=== PATIENT | male | born 1960 | race Caucasian/White ===

== ENCOUNTER 2022-09-07 12:50 | Emergency (ER) | payer MEDICARE, SELFPAY ==
[2022-09-07 13:04] VITALS: BP 125/75; PULSE 67; RESP 18; TEMP 36.7; O2SAT 98; BMI 21.1
--- NOTE | 2022-09-07 13:37 | CRLHL7_ITS ---
For Patients: As a result of the 21st Century Cures Act, medical imaging exams and procedure reports are released immediately into your electronic medical record. You may view this report before your referring provider. If you have questions, please contact your health care provider. INDICATION: Left lower quadrant abdominal pain COMPARISON: None TECHNIQUE: CT examination of the abdomen and pelvis was performed following the uneventful intravenous administration of 79 cc of Isovue 370. Thin section axial images were obtained from the lung bases through the pubic symphysis. Oral contrast was not administered. Please note that all CT scans at this facility use dose modulation, iterative reconstruction, and/or weight-based dosing when appropriate to reduce radiation dose to as low as reasonably achievable. FINDINGS: LUNG BASES: There is a 4 millimeter nodule at the right lung base. Follow up evaluation as per Fleischner society guidelines.The heart size is normal at the lung bases. Small hiatal hernia. LIVER/BILIARY SYSTEM:A few scattered tiny low-density hepatic lesions are noted. These are too small to characterize by imaging but are likely benign. Contracted but otherwise unremarkable appearing gallbladder.The gall bladder appears normal. ADRENALS: Normal KIDNEYS, URETERS and BLADDER:The kidneys appear normal. The bladder is distended. SPLEEN:Normal appearance. PANCREAS: Poorly delineated due to paucity of fat planes but no gross abnormality RETROPERITONEUM and MESENTERY: Atherosclerotic vascular calcification GASTROINTESTINAL SYSTEM: Limitations due to marked paucity of fat planes. No definite mechanical obstruction. Mild fecal retention. PELVIS: No mass, adenopathy or free fluid. OSSEOUS STRUCTURES and ABDOMINAL WALL: There is an age-appropriate appearance of the osseous structures.There is a small left inguinal hernia. This does not admit bowel. OTHER: No free fluid or free air. IMPRESSION: 1. There is a 4 millimeter nodule at the right lung base. Follow-up as per Fleischner guidelines. (No follow-up for low risk individuals, consider 12 month follow-up evaluation for high-risk individuals) 2. Scattered low-density hepatic lesions too small to characterize but likely benign 3. Atherosclerotic vascular calcifications 4. There are some limitations due to paucity of fat planes but no additional abdominal or pelvic abnormalities are noted. 5. Small left inguinal hernia. This does not admit bowel. Please note that all CT scans at this facility use dose modulation, iterative reconstruction, and/or weight-based dosing when appropriate to reduce radiation dose to as low as reasonably achievable. Dictated by Roel Ram MD @ 09/07/2022 3:54:41 PM (Electronically Signed)
--- NOTE | 2022-09-07 13:38 | ED.ABDPAIN ---
HPI - Abdominal Pain General Chief Complaint: Abdominal Pain Stated Complaint: Suspected hernia mesh failure Time Seen by Provider: 09/07/22 13:08 History of Present Illness HPI narrative: This 62-year-old male comes in reporting pain in his left lower quadrant. He states that he had a hernia repair done with mesh about a year ago and did well until about 4 months ago when he began to have pain in this area. He felt like something moved and wondered if there was a failure of the hernia repair. He did have a CT scan at his home in [place] about 2 months ago. He also had a colonoscopy which was normal except for a couple benign polyps in the rectum area. He comes in today stating that the pain in his abdomen is worse. He is not taking any medications. He states that he is otherwise in good health. He denies having any vomiting or diarrhea. He has not had any fevers. Related Data Home Medications Medication Instructions Recorded Confirmed acyclovir 200 mg capsule 200 mg PO 5XD 09/07/22 09/07/22 azithromycin 250 mg tablet 250 mg PO DAILY 09/07/22 09/07/22 chlorhexidine gluconate 0.12 % PO BID 09/07/22 mouthwash levothyroxine .ROUTE 09/07/22 prednisone 20 mg tablet 20 mg PO BID 09/07/22 09/07/22 Previous Rx's Medication Instructions Recorded ketorolac 10 mg tablet 10 mg PO Q8H 7 days #21 tabs 09/07/22 Allergies Allergy/AdvReac Type Severity Reaction Status Date / Time No Known Drug Allergies Allergy Verified 09/07/22 14:34 Review of Systems Status of ROS Reports: 10 or more systems reviewed and unremarkable except as noted in History and below Narrative Constitutional: No fevers, no weight gain or loss. Eyes: No discharge. No vision changes. HENT: No congestion, no sore throat, no ear pain. Cardiovascular: No chest pain, no palpitations. Respiratory: No shortness of breath, no wheezes, no cough. Gastrointestinal: No vomiting, no diarrhea. Pain over the left inguinal region where a hernia repair occurred about a year ago. Genitourinary: No dysuria, no hematuria. Musculoskeletal: Normal range of motion. Skin: No rashes, no pruritis. Neurological: No dizziness, weakness, sensory change, speech change. Endo/Heme/Allergies: No bruising or bleeding. No polydipsia. Pysch: no suicidality, no anxiety, no insomnia. All other systems reviewed and are negative. Exam Narrative: Exam Narrative: Constitutional: Well-developed, well-nourished, no acute distress. HEENT: Normocephalic, atraumatic. Neck: Normal range of motion. Nontender. Supple. Heart: Regular. No murmurs. Normal rate. Intact distal pulses. Lungs: Clear to auscultation. No chest discomfort. No wheezes, rhonchi, or rales. Abdomen: Normal bowel sounds. Tenderness over the left inguinal region. No bulging or sign of hernia. No rebound tenderness. Genitalia: Deferred. Back: No midline tenderness. Normal range of motion. Extremities: Normal range of motion. No injury. Skin: Intact. No rash. Warm. No erythema or pallor. Neurologic: No altered sensation. No weakness. Alert and oriented. Psychiatric: No suicidality. No anxiety or depression. No insomnia. Nursing notes and vitals signs are reviewed. Const: Vital Signs, click to edit/add: Vital Signs - 24 hr 09/07/22 13:04 Temperature 98.1 F Pulse Rate [Right Pulse Oximeter] 67 Respiratory Rate 18 Blood Pressure [Ri ght Upper Arm] 125/75 Pulse Oximetry 98 Oxygen Delivery Me thod Room Air Course Vital Signs Vital signs: Initial Vital Signs Temperature 98.1 F 09/07/22 13:04 Temperature Source Temporal Artery Scan 09/07/22 13:04 Pulse Rate 67 09/07/22 13:04 Respiratory Rate 18 09/07/22 13:04 Blood Pressure 125/75 09/07/22 13:04 Blood Pressure Mean 91 09/07/22 13:04 Blood Pressure Position Sitting 09/07/22 13:04 Pulse Oximetry 98 09/07/22 13:04 Oxygen Delivery Method Room Air 09/07/22 13:04 Vital Signs Temperature 98.1 F 09/07/22 13:04 Pulse Rate 67 09/07/22 13:04 Respiratory Rate 18 09/07/22 13:04 Blood Pressure 125/75 09/07/22 13:04 Pulse Oximetry 98 09/07/22 13:04 Oxygen Delivery Method Room Air 09/07/22 13:04 Temperature 98.1 F 09/07/22 13:04 Pulse Rate 67 09/07/22 13:04 Respiratory Rate 18 09/07/22 13:04 Blood Pressure 125/75 09/07/22 13:04 Pulse Oximetry 98 09/07/22 13:04 Oxygen Delivery Method Room Air 09/07/22 13:04 MDM - Abdominal Pain MDM Narrative Medical decision making narrative: This 62-year-old male comes in with pain in his left lower inguinal region. He did have a hernia repair here about a year ago but states that he is having pain in this area again. CT imaging of the abdomen and pelvis does show evidence of a small hernia but there is no protuberance of bowel or other abdominal contents through the hernia. I advised the patient to follow-up with his surgeon for further management of this if desired. He is okay to return home and I did provide a prescription for Toradol. Lab Data Labs: Lab Results 09/07/22 Range/Units 13:55 POC Creatinine 0.8 (0.6-1.3) mg/dl Imaging Data CT scan - abdomen: Radiologist's impression: 1. There is a 4 millimeter nodule at the right lung base. Follow-up as per Fleischner guidelines. (No follow-up for low risk individuals, consider 12 month follow-up evaluation for high-risk individuals) 2. Scattered low-density hepatic lesions too small to characterize but likely benign 3. Atherosclerotic vascular calcifications 4. There are some limitations due to paucity of fat planes but no additional abdominal or pelvic abnormalities are noted. 5. Small left inguinal hernia. This does not admit bowel. Discharge Plan Discharge Clinical Impression: Inguinal hernia Patient Disposition: Home, Self-Care Condition: Unchanged Additional Instructions: Take medication as needed and indicated. Follow up with surgery Clinic if symptoms persist or worsen and if desiring further management or treatment of the left inguinal hernia. Prescriptions: New ketorolac 10 mg tablet 10 mg PO Q8H 7 Days Qty: 21 0RF No Action azithromycin 250 mg tablet 250 mg PO DAILY acyclovir 200 mg capsule 200 mg PO 5XD chlorhexidine gluconate 0.12 % mouthwash PO BID prednisone 20 mg tablet 20 mg PO BID levothyroxine .ROUTE Follow Up/Referrals: Provider,Not a Local [Primary Care Provider] - Stand Alone Forms: Wide Limited Release [employer] Fund Info Instructions
[2022-09-07 14:02] VITALS: BP 115/79; PULSE 66; O2SAT 97
[2022-09-07 14:03] VITALS: PULSE 66; O2SAT 97
[2022-09-07 14:15] VITALS: PULSE 65; O2SAT 97
[2022-09-07 14:23] LABS: Creatinine, Point-of-Care* 0.8 mg/dl (0.6-1.3)
--- NOTE | 2022-09-07 19:30 | ED.NURSE ---
Patient called because [facility] was unable to fill his toradol prescription r/t too many tablets. Spoke with [facility] pharmacist, patient's presription was for #21 tablets, the max they can fill is #[address] Massey, okay to change to #20 tablets. Pharmacist aware and will update prescription. Patient called and informed prescription was corrected. No further questions/concerns.
== END 2022-09-07 16:40 | disposition home or self-care (01) ==
PROVIDERS: Emergency Provider Emergency Medicine Emergency Medical Services
DX: K40.90 Unilateral inguinal hernia, without obstruction or gangrene, not specified as recurrent (principal)
CPT/HCPCS: 74177; 82565; 99284; Q9967

== ENCOUNTER 2025-04-10 15:58 | Emergency (ER) | payer MEDICARE, SELFPAY ==
--- OUTSIDE RECORDS SUMMARY | 2025-04-10 16:00 | XMS_ITS | Clinical Summary ---
Author Organization [facility] Address [address] [place] [id number] Care Team Providers Care Bioinformatician Name Role Phone Unavailable Primary Care Provider Unavailabl e Source Comments Patient records contain information from all sites at [facility]. For routine questions regarding patient records, call [phone] during business hours, M-F 8:00 AM - 5:00 PM Central Time. Record requests for emergency care only can be directed to [phone] at any time.[facility] Allergies Active Allergy Reactions Criticality Noted Date Comments Cat Dander Other (see comments) 01/25/2024 SNEEZING COUGHING Medications levothyroxine (Tirosint) 175 mcg capsule 350 MCG DAILY SAT - SUN 700 MCG Active cyclobenzaprine (FlexeriL) 10 mg tablet Take 10 mg by mouth at bedtime. 4 Active meloxicam 7.5 mg/5 mL suspension Take 15 mg by mouth daily. 3 Active ketoconazole (Nizoral) 2 % cream Apply 1 Application topically 2 (two) times a day. Active acetaminophen (TylenoL) 500 mg tablet Take 2 tablets (1,000 mg total) by mouth every 6 (six) hours as needed for pain. 4 Active ibuprofen 400 mg tablet Take 400 mg by mouth every 6 (six) hours as needed for pain. Active Active Problems Problem Noted Date Diagnosed Date Other Specified Disorders Of Thyroid 05/13/2024 Pain Abdominal Chronic 05/13/2024 Pain Groin 01/29/2024 Social History Tobacco Use Types Packs/Day Years Used Date Smoking Tobacco: Former Cigarettes Smokeless Tobacco: Never Tobacco Cessation:Counseling Given: Not Answered Alcohol Use Standard Drinks/Week Comments Defer 0 (1 standard drink = 0.6 oz pur e alcohol) [facility] Utilities Answer Date Recorded In the past 12 months has th e electric, gas, oil, or water company threatened to shut off services in your home? No 06/13/2024 Hunger Vital Sign Answer Date Recorded Within the past 12 months, y ou worried that your food would run out before you got the money to buy more. Never true 06/13/19 Within the past 12 months, t he food you bought just didn't last and you didn't have money to get more. Never true 06/13/2024 PRAPARE - Transportation Answer Date Re corded In the past 12 months, has l ack of transportation kept you from medical appointments or from getting medications? No 05/16 In the past 12 months, has l ack of transportation kept you from meetings, work, or from getting things needed for daily living? No 06/13/2024 Housing Stability Answer Date Recorded What is your living situation today? I have a [facility] place to live 06/13/2024 Sex and Gender Information Value Date Recorded Sex Assigned at Male 06/13/2024 10:47 AM ASSOCIATE SALES Legal Sex Male 1:12 PM CDT Gender Identity Male 06/13/2024 10:47 AM [employer]ATE SAL[employer] Sexual Orientation Straight 06/13/2024 10 :47 AM ASSOCIATE SALES Last Filed Vital Signs Vital Sign Reading Time Taken Comments Blood Pressure 110/68 05/13/2024 4:45 PM [employer]OC[employer]ATE SAL[employer] Pulse 76 05/13/2024 4:45 PM [employer]OC[employer]ATE SAL[employer] Temperature 36.7 C (98.1 F) 05/13/2024 4:45 PM ASSOCIATE SALES Respiratory Rate 17 05/13/2024 4:45 PM ASSOCIATE SALES Oxygen Saturation 98% 05/13/2024 4:45 PM ASSOCIATE SALES Inhaled Oxygen Concentration - - Weight 68.1 kg (150 lb 2.1 oz) 05/13/2024 9:38 A M [employer] Height 185 cm (6' 0.84) 05/13/2024 9:38 AM ASSOC[employer]ATE SALES Body Mass Index 19.9 05/13/2024 9:38 AM ASSOCIATE SALES Plan of Treatment Health Maintenance Due Date Last Done Comments CT Colonography 1962 Cologuard 1962 Colonoscopy 1962 Colorectal Cancer Screening 1962 FIT 1962 Fasting Glucose for Diabetes Screening 1962 HIV Screening 1962 Hepatitis C Screening 1962 Lipid (Cholesterol) Screening 1962 Thyroid Stimulating Hormone (TSH) test for thyroid function 1962 DTaP,Tdap,and Td Vaccines (1 - Tdap) 1981 Pneumococcal vaccine (50+ ye ars) (1 of 1 - PCV) 2012 Zoster Vaccines (1 of 2) 2012 Depression Screening (Annual PHQ-2) 05/14/2024 COVID-19 Vaccine (1 - 2024-2 6 season) 2025 Influenza Vaccine (#1) 2025 IPV Vaccines Aged Out No longer eligi ble based on patient's age to complete this topic Medical Devices Implanted Type Area Slackline Operator Device Identifier Shelf Expiration Date Model / Serial / Lot Mesh Or Patch Mesh or Patch Abdomen Insurance MEDICARE Advance Directives For more information, please contact: [phone] * Full Code (Latest Code Status on File) Date Activated Date Inactivated Comments 05/13/2024 12:04 PM 05/13/2024 7:10 PM Question Answer Comments Full Code: Discussed
--- OUTSIDE RECORDS SUMMARY | 2025-04-10 16:00 | XMS_ITS | Clinical Summary ---
Author Organization [facility] Address [address] [place] [id number] Care Team Providers Care Electric Power Superintendent Name Role Phone Pcp, No Primary Care Provider Unavailabl e Allergies No known active allergies Medications levothyroxine (SYNTHROID) 200 mcg tablet Take 1.5 tablets by mouth before breakfast. 90 tablet 3 10/24/2017 Active liothyronine (CYTOMEL) 5 mcg tablet Take by mouth once daily. 0 10/24/2017 Active meloxicam (MOBIC) 7.5 mg tablet Take by mouth once daily. 0 10/24/2017 Active Celecoxib (CELEBREX) 50 mg capsule Take by mouth 2 times daily. 0 10/24/2017 Active gabapentin (NEURONTIN) 100 mg capsule Take by mouth 3 times daily. 0 10/24/2017 Active traMADol (ULTRAM) 50 mg tablet Take 1 tablet by mouth every 6 hours if needed for Pain. 0 10/24/2017 Active PARoxetine (PAXIL) 10 mg tablet Take by mouth every morning. 0 10/24/2017 Active Active Problems Problem Noted Date Diagnosed Date Seizure-like activity 10/24/2017 Hypothyroidism 10/24/2017 Carpal tunnel syndrome 10/24/2017 Osteoarthritis 10/24/2017 Skin cancer 10/24/2017 Bone tumor 10/24/2017 Bone tumor (benign) 10/24/2017 MRSA (methicillin resistant Staphylococcus aureu s) 10/24/2017 Overview (10/24/2017): Of leg Social History Tobacco Use Types Packs/Day Years Used Date Smoking Tobacco: Every Day Cigarettes 0.3 30 Smokeless Tobacco: Never Sex and Gender Information Value Date Recorded Sex Assigned at Not on file Legal Sex Male 2:35 PM CDT Gender Identity Not on file Sexual Orientation Not on file Obstetrics History Last Filed Vital Signs Vital Sign Reading Time Taken Comments Blood Pressure 110/68 10/24/2017 2:57 PM CDT Pulse 76 10/24/2017 2:57 PM CDT Temperature 36.5 C (97.7 F) 10/24/2017 2:57 PM CDT Respiratory Rate - - Oxygen Saturation 98% 10/24/2017 2:57 PM CDT Inhaled Oxygen Concentration - - Weight - - Height - - Body Mass Index - - Plan of Treatment Health Maintenance Due Date Last Done Comments Tetanus booster 1973 Depression screening for age 12+ 1974 HIV for age 15-65 1977 BMI (ht and wt on same day) for age 18+ 1980 Hepatitis C screening for ag e 18-79 1980 Colonoscopy through age 75 2007 Lipids for age 45-75 2007 Pneumococcal series for age 50+ (1 of 1 - PCV) 2012 Zoster (shingles) series for age 50+ (1 of 2) 2012 Influenza Vaccine (#1) 2025 RSV vaccine for adults or (1 - 1-dose 75+ series) 2037 Hepatitis B series for 19+ Aged Out N o longer eligible based on patient's age to complete this topic Insurance MEDICARE [place] ONLY Care Teams Electric Power Superintendent Relationship Specialty Start Date End Date Pcp, No . PCP - General 10/24/17
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
[2025-04-10 16:10] VITALS: BP 119/81; PULSE 67; RESP 18; TEMP 36.7; O2SAT 100; BMI 20.6
--- NOTE | 2025-04-10 17:28 | ED.ABDPAIN ---
HPI - Abdominal Pain General Time Seen by Provider: 17:29 Date Seen: 04/10/25 Chief Complaint: Abdominal Pain Stated Complaint: Lower abdominal pain, constipation Time Seen by Provider: 04/10/25 17:28 Source: patient and RN notes reviewed Mode of arrival: ambulatory Limitations: no limitations History of Present Illness HPI narrative: This 64-year-old male is just returning from the [facility] where he was having left-sided lower abdominal pain, had a CT there on March [address] written report showing abnormal distal small bowel with suspected vascular compromise/volvulus. There is disproportionate poor enhancement, delayed passage of oral contrast and relative dilation of the distal small intestinal segments with irregular wall thickening of the cecum and terminal ileum. There was reversal of the normal mesenteric artery-vein relationship with a mesenteric swirl pattern, highly suggestive of twisting of the mesentery: Squirrel sign? in the setting of possible midgut volvulus/internal hernia, on a background of intestinal malrotation. Correlate with acute abdomen, lactate and inflammatory markers. They also noted stomach and gastroesophageal junction changes. Collapse stomach with circumferential mural thickening: Up to approximately 1.5 cm. Maybe at least partially related to under distension, but gastritis/inflammatory or infiltrative pathology cannot be excluded. Superior herniation of the gastro esophageal junction, compatible with a small sliding hiatal hernia. Correlate clinically; endoscopic assessment may be considered if symptoms warrant. Liver and solid organs showed small, well-defined, fluid isodense foci in the right hepatic lobe, most compatible with tiny simple hepatic cysts. Gallbladder, pancreas, spleen, adrenals and kidneys are unremarkable; no urolithiasis or hydroureter nephrosis. Lymph nodes in vascular structure without abdominal lymphadenopathy, atherosclerotic calcifications of the abdominal wall and iliac arteries. Musculoskeletal show degenerative spondylosis of the thoraco-lumbar spine, marginal osteophytes. The overall impression was CT findings were worrisome for small bowel volvulus/close loop obstruction with potential ischemia involving the distal small bowel and ileocecal region the setting of abnormal mesenteric vessel orientation. Clinical correlation suggested. Patient notes he went in on the for pain that had been there for about 10 days prior. He states he works out a lot, noted some bulging in that left lower abdominal area and pain. He alternates with constipation and diarrhea. States he has underlying celiac disease. Other than that he states he has arthritis. He has had abdominal surgeries for a left inguinal hernia, states he has had 3 surgeries. He had a left inguinal hernia initially repaired with mesh open per his report. That field and they did a revision laparoscopically with more internal mesh for repair. He states they left the outer mesh in place. This outer mesh continued to cause him pain or problems, does not sound like it was infectious but he ended up having that mesh removed, they did that with an open incision. He has had no other abdominal surgeries. He has been able to eat, no fevers or chills, no nausea or vomiting. Denies any respiratory symptoms. This CT was done in the [facility], he has a condo over there and stays there because of the weather. He came back here because he was having symptoms. He continues to note pain but since they did the imaging, has moved more periumbilically. He came back because of the CT, did not want to have surgery over there. His last surgery for his inguinal hernia issues was at [facility]. He has recently felt some nausea, no vomiting, had a bowel movement yesterday, has been passing gas. Patient does not really drink alcohol. He notes lying flat and moving will exacerbate the pain. MD elicited complaint: abdominal pain Related Data Home Medications ?Medication ?Instructions ?Recorded ?Confirmed acyclovir 200 mg capsule 200 mg PO 5XD 09/07/22 09/07/22 azithromycin 250 mg tablet 250 mg PO DAILY 09/07/22 09/07/22 chlorhexidine gluconate 0.12 % PO BID 09/07/22 mouthwash levothyroxine .ROUTE 09/07/22 prednisone 20 mg tablet 20 mg PO BID 09/07/22 09/07/22 Previous Rx's ?Medication ?Instructions ?Recorded ketorolac 10 mg tablet 10 mg PO Q8H 7 days #21 tabs 09/07/22 Allergies Allergy/AdvReac Type Severity Reaction Status Date / Time No Known Drug Allergies Allergy Verified 09/07/22 14:34 Review of Systems Status of ROS Reports: 6 or more systems reviewed and unremarkable except as noted in History and below [facility] Social History Smoking Status: Unknown if ever smoked Exam Const: Vital Signs, click to edit/add: Vital Signs - 24 hr 04/10/25 16:10 Temperature 98.0 F Pulse Rate [Pulse Oximeter] 67 Respiratory Rate 18 Blood Pressure [Ri ght Upper Arm] 119/81 Pulse Oximetry 100 Oxygen Delivery Me thod Room Air This 64-year-old male is alert, interactive, no apparent distress. He is seen in exam room 1, lying comfortably in the bed. Sclera clear, conjugate gaze. Symmetrical facial function. Speech is normal, able to speak freely, no difficulty speaking. Lungs are clear, good air entry, wheeze or crackles, no tachypnea, no accessory muscle use. CV regular rate and rhythm, no murmur, normal S1-S2, no S3-S4. Abdomen is soft, not distended, normal bowel sounds. You can see old well-healed scars and left lower abdominal/inguinal area but there is no palpable hernia, no significant tenderness. I feel no masses anywhere, no organomegaly. His abdomen really is not tender at this time. Documenting provider has reviewed patient's vital signs: yes Course Course ED Course: Given his external CT findings on March 26, feel we need to repeat this. We are absolutely not able to see any of these images. Will do full complement of labs including urinalysis, lactate lipase, comprehensive metabolic panel/liver panel, CBC. Clinically he is hemodynamically stable, afebrile, abdominal exam is not consistent with an acute surgical abdomen at this time. He could have some left lower abdominal symptoms relating to prior hernia issues that could be nonsurgical. If that is what shows up, patient will need to follow up with his surgeon at [facility]. Reevaluation(s) Time of Reevaluation #1: 19:59 Reevaluation #1: Have reviewed patient's CT report with him, provided him a copy. There is fortunately nothing surgical at this time. He has some nonspecific small bowel findings that might be consistent with enteritis. He does have a lot of fecal material in the colon. He has had some nausea but no vomiting. He has had no fevers, he has had no bloody diarrhea. We reviewed reassuring labs. At this time, think he is stable to discharge to home. We can give him some Zofran for any ongoing nausea. Will have him consider using some MiraLax to try to help keep clean out the colon. We discussed if he has ongoing issues, it is probably time to see GI, particularly since symptoms started over in [facility]. May need further intervention in considerations beyond scope in practice what is available here in the [place] system. He states he will need a referral if that is the case, he can follow up in clinic here, will provide him the number, GI referral could be done at a follow-up visit. We discussed signs and symptoms for return which he states he has had none of to date. Vital Signs Vital signs: Initial Vital Signs Temperature 98.0 F 04/10/25 16:10 Temperature Source Temporal Artery Scan 04/10/25 16:10 Pulse Rate 67 04/10/25 16:10 Pulse Rhythm Regular 04/10/25 16:10 Respiratory Rate 18 04/10/25 16:10 Blood Pressure 119/81 04/10/25 16:10 Blood Pressure Mean 93 04/10/25 16:10 Blood Pressure Position Sitting 04/10/25 16:10 Pulse Oximetry 100 04/10/25 16:10 Oxygen Delivery Method Room Air 04/10/25 16:10 Vital Signs Temperature 98.0 F 04/10/25 16:10 Pulse Rate 67 04/10/25 16:10 Respiratory Rate 18 04/10/25 16:10 Blood Pressure 119/81 04/10/25 16:10 Pulse Oximetry 100 04/10/25 16:10 Oxygen Delivery Method Room Air 04/10/25 16:10 Temperature 98.0 F 04/10/25 16:10 Pulse Rate 67 04/10/25 16:10 Respiratory Rate 18 04/10/25 16:10 Blood Pressure 119/81 04/10/25 16:10 Pulse Oximetry 100 04/10/25 16:10 Oxygen Delivery Method Room Air 04/10/25 16:10 MDM - Abdominal Pain Lab Data Attestation: I reviewed the patient's lab results. Labs: Lab Results 04/10/25 Range/Units 17:45 WBC 8.20 (4.50-11.00) K/uL RBC 3.79 L (4.30-5.90) m/uL Hgb 11.3 L (13.5-17.5) gm/dL Hct 35.0 L (37.0-53.0) % MCV 92 (80-100) fL MCH 30 (26-34) pg MCHC 32 (32-36) gm/dL RDW Coeff of Grisel 17.9 H (11.5-15.5) % Plt Count 368 (140-440) K/uL Neut % (Auto) 47.3 (42.0-72.0) % Lymph % (Auto) 40.0 (20-44) % [place] % (Auto) 11.0 (0.0-11.0) % Eos % (Auto) 0.9 (0.0-7.0) % Baso % (Auto) 0.4 (0.0-3.0) % Neut # (Auto) 3.89 (1.7-7.0) K/uL Lymph # (Auto) 3.28 H (0.90-2.90) K/uL [place] # (Auto) 0.90 (0.00-0.90) K/UL Eos # (Auto) 0.07 (0.00-0.50) K/uL Baso # (Auto) 0.03 (0.00-0.30) K/uL Abs Immat Gran (auto) 0.03 (0.00-0.30) K/uL Imm/Tot Granulo (auto) 0.4 % Sodium 137 (135-149) mmol/L Potassium 3.8 (3.6-5.1) mmol/L Chloride 103 (96-114) mmol/L Carbon Dioxide 25 (20-32) mmol/L Anion Gap 9 (7-15) mEq/L BUN 13 (7-30) mg/dL Creatinine 0.7 (0.5-1.5) mg/dL Estimated Creat Clear 76.66 Estimated GFR 104 ml/min Glucose 95 (60-115) mg/dL Lactate 1.1 (0.5-1.9) mmol/L Calcium 8.2 L (8.4-10.6) mg/dL Total Bilirubin 0.2 (0.1-1.5) mg/dL Direct Bilirubin 0.1 (0.0-0.5) mg/dL AST 41 H (12-35) U/L ALT 48 (4-50) U/L Alkaline Phosphatase 85 (40-150) U/L C-Reactive Protein < 0.5 L (0.5-1.0) mg/dL Total Protein 7.0 (6.0-8.3) g/dL Albumin 3.9 (3.3-5.0) g/dL Lipase 77 (23-300) U/L Urine Color Yellow (Yellow) Urine Appearance Clear (Clear) Urine pH 6.5 (5.0-8.5) Ur Specific [place] 1.010 (1.000-1.030) Urine Protein Negative (Negative) Urine Glucose (UA) Negative (Negative) Urine Ketones Negative (Negative) Urine Blood Negative (Negative) Urine Nitrite Negative (Negative) Urine Bilirubin Negative (Negative) Urine Urobilinogen 0.2 (0.2-1.0) Ur Leukocyte Esterase Negative (Negative) Urine RBC 0-2 (0-2) Urine WBC 0-2 (0-5) Ur Squamous Epith Cells None (None-Few) Urine Bacteria None (None) Imaging Data CT scan - abdomen: Attestation: I have reviewed the pertinent imaging results. Radiologist's impression: Patient: KONSTANTIN OLIVO Facility:?[facility] Patient ID:?[id number] Site Patient ID:?[id number]. Site :?[id number] Study:?CT-Abdomen/Pelvis W/IV-04/10/2025 6:25:45 PM Ordering Physician:?Greg Medina Final Report: INDICATION: Left lower quadrant abdominal pain/periumbilical. History of left groin hernia status post surgery. TECHNIQUE: CT of the abdomen and pelvis acquired with 77 cc Isovue 370 IV contrast. Coronal and sagittal reconstructions. COMPARISON: CT of the abdomen and pelvis 09/07/2022. FINDINGS: Lower chest: Unremarkable. Liver: Normal in size and attenuation. Few stable subcentimeter hypodense lesions which are too small to characterize but likely benign. Gallbladder and bile ducts: Unremarkable. No biliary dilation. Spleen: Unremarkable. Pancreas: Unremarkable. Adrenal glands: Unremarkable. Kidneys, Ureters, and Bladder: Symmetric enhancement. No hydronephrosis or ureteral dilation. No obstructing urinary calculi. No bladder wall thickening. Reproductive organs: Unremarkable. GI tract/Peritoneum: Small hiatal hernia. Distended stomach. There is wall thickening of multiple proximal to mid small bowel loops, with fluid-filled nondistended distal small bowel loops. Findings suggest a nonspecific enteritis. No evidence of bowel obstruction. Large stool burden. Redundant sigmoid colon extending into the upper abdomen. The appendix is not identified. No intraperitoneal free air or fluid. Vasculature: Abdominal aorta is normal in caliber. Aortoiliac vascular calcifications. Mesenteric arteries appear patent. Lymph nodes: No lymphadenopathy. Abdominal Wall: Unremarkable. No sign of recurrent hernia. Bones: Unremarkable for age. IMPRESSION: 1. Findings suggestive of a nonspecific enteritis. No evidence of bowel obstruction. 2. Large stool burden. Please note that all CT scans at this facility use dose modulation, iterative reconstruction, and/or weight-based dosing when appropriate to reduce radiation dose to as low as reasonably achievable. Dictated by Angeline Jacobo MD @ 04/10/2025 7:25:05 PM (Electronic Signature) Discharge Plan Discharge Clinical Impression: Enteritis Abdominal pain Qualifiers: Abdominal location: left lower quadrant Qualified Code(s): R10.32 - Left lower quadrant pain Patient Disposition: Home, Self-Care Condition: Stable Instructions: Constipation (ED), Abdominal Pain (ED), Enteritis (ED) Additional Instructions: Can use Zofran 4 mg every 8 hours to help control any subsequent nausea, 10 tablets given from [employer]. Do recommend initiating some MiraLax, start was 17 g daily or 1 capful for the stool buildup seen on CT imaging, certainly could be constipation. This hopefully will help clear out the colon. You need to titrate the MiraLax to a goal result of soft but formed stool daily. If you start to have diarrhea with too much MiraLax use, can back off the dosing like going to a half capful daily. Drink plenty of fluids to stay hydrated. Recommend getting a clinic follow-up within the next week for recheck, if ongoing problems, may need to see gastroenterology and referral could be placed from clinic. We do not do referrals from the ER. Clinic phone number to [place] is [phone]. Let them know that you were in the ER in need a post ER follow-up visit. Should you develop worsening abdominal pain, have uncontrolled vomiting with this, develops fevers, developed bloody diarrhea, do need to seek re-evaluation. Activity Level: Activity as Tolerated Prescriptions: No Action azithromycin 250 mg tablet 250 mg PO DAILY acyclovir 200 mg capsule 200 mg PO 5XD chlorhexidine gluconate 0.12 % mouthwash PO BID prednisone 20 mg tablet 20 mg PO BID levothyroxine .ROUTE ketorolac 10 mg tablet 10 mg PO Q8H 7 Days Qty: 21 0RF Follow Up/Referrals: Provider,Not a Local [Primary Care Provider, Family Practice] Stand Alone Forms: MyHealth Info Instructions
[2025-04-10 17:30] VITALS: BP 103/62; PULSE 64; RESP 16; O2SAT 96
--- NOTE | 2025-04-10 17:37 | CRLHL7_ITS ---
For Patients: As a result of the Century Cures Act, medical imaging exams and procedure reports are released immediately into your electronic medical record. You may view this report before your referring provider. If you have questions, please contact your health care provider. INDICATION: Left lower quadrant abdominal pain/periumbilical. History of left groin hernia status post surgery. TECHNIQUE: CT of the abdomen and pelvis acquired with 77 cc Isovue 370 IV contrast. Coronal and sagittal reconstructions. COMPARISON: CT of the abdomen and pelvis 09/07/2022. FINDINGS: Lower chest: Unremarkable. Liver: Normal in size and attenuation. Few stable subcentimeter hypodense lesions which are too small to characterize but likely benign. Gallbladder and bile ducts: Unremarkable. No biliary dilation. Spleen: Unremarkable. Pancreas: Unremarkable. Adrenal glands: Unremarkable. Kidneys, Ureters, and Bladder: Symmetric enhancement. No hydronephrosis or ureteral dilation. No obstructing urinary calculi. No bladder wall thickening. Reproductive organs: Unremarkable. GI tract/Peritoneum: Small hiatal hernia. Distended stomach. There is wall thickening of multiple proximal to mid small bowel loops, with fluid-filled nondistended distal small bowel loops. Findings suggest a nonspecific enteritis. No evidence of bowel obstruction. Large stool burden. Redundant sigmoid colon extending into the upper abdomen. The appendix is not identified. No intraperitoneal free air or fluid. Vasculature: Abdominal aorta is normal in caliber. Aortoiliac vascular calcifications. Mesenteric arteries appear patent. Lymph nodes: No lymphadenopathy. Abdominal Wall: Unremarkable. No sign of recurrent hernia. Bones: Unremarkable for age. IMPRESSION: 1. Findings suggestive of a nonspecific enteritis. No evidence of bowel obstruction. 2. Large stool burden. Please note that all CT scans at this facility use dose modulation, iterative reconstruction, and/or weight-based dosing when appropriate to reduce radiation dose to as low as reasonably achievable. Dictated by Angeline Jacobo MD @ 04/10/2025 7:25:05 PM (Electronically Signed)
[2025-04-10 18:04] LABS: Lactate* 1.1 mmol/L (0.5-1.9)
[2025-04-10 18:07] LABS: Hematocrit* 35.0 % (37.0-53.0); Hemoglobin* 11.3 gm/dL (13.5-17.5); Immature Granulocytes Abs Auto 0.03 K/uL (0.00-0.30); Immature Granulocytes Pct Auto 0.4 %; Lymphocytes Absolute Auto 3.28 K/uL (0.90-2.90); Mean Corpuscular HGB Conc 32 gm/dL (32-36); Mean Corpuscular Hemoglobin 30 pg (26-34); Mean Corpuscular Volume 92 fL (80-100); RDW Coefficient of Variation % 17.9 % (11.5-15.5); Red Blood Count* 3.79 m/uL (4.30-5.90); White Blood Count* 8.20 K/uL (4.50-11.00)
[2025-04-10 18:11] LABS: Appearance Urine Clear (Clear)
[2025-04-10 18:13] LABS: Slide Review Reflex No
[2025-04-10 18:24] LABS: Albumin* 3.9 g/dL (3.3-5.0); Chloride* 103 mmol/L (96-114); Sodium* 137 mmol/L (135-149)
[2025-04-10 18:25] LABS: Potassium* 3.8 mmol/L (3.6-5.1)
[2025-04-10 18:27] LABS: Alanine Aminotransferase* 48 U/L (4-50); Alkaline Phosphatase* 85 U/L (40-150); Anion Gap 9 mEq/L (7-15); Aspartate Amino Transferase* 41 U/L (12-35); Bilirubin Direct* 0.1 mg/dL (0.0-0.5); Bilirubin Total* 0.2 mg/dL (0.1-1.5); Blood Urea Nitrogen* 13 mg/dL (7-30); Calcium* 8.2 mg/dL (8.4-10.6); Carbon Dioxide* 25 mmol/L (20-32); Creatinine* 0.7 mg/dL (0.5-1.5); Est. Creatinine Clearance* 76.66; Estimated Glomerular Filt Rate 104 ml/min; Glucose* 95 mg/dL (60-115); Total Protein* 7.0 g/dL (6.0-8.3)
[2025-04-10 18:30] VITALS: BP 110/70; PULSE 69; RESP 14; O2SAT 96
[2025-04-10 19:00] VITALS: BP 110/69; PULSE 61; RESP 16; O2SAT 97
[2025-04-10 19:30] VITALS: BP 107/67; PULSE 65; RESP 14; O2SAT 96
== END 2025-04-10 20:15 | disposition home or self-care (01) ==
PROVIDERS: Emergency Provider Family Medicine
DX: K52.9 Noninfective gastroenteritis and colitis, unspecified (principal); R10.32 Left lower quadrant pain; D64.9 Anemia, unspecified
CPT/HCPCS: 36415; 74177; 80053; 81001; 82248; 83605; 83690; 85025; 86140; 96374; 99284; 99285; Q9967